=== PATIENT | male | born 1975 | race African-American/Black ===

== ENCOUNTER 2018-08-26 10:48 | Day surgery (SDC) | payer BC, MEDICARE ==
[~2018-08-26] VITALS: Ht 182.9 cm; Wt 141.9 kg
[~2018-08-26 10:48] MED LIST: BUPIVACAINE/PF 0.5% ONE; LIDOCAINE 1%, 20ML ONE
[2018-08-26] MEDS ORDERED: LACTATED RINGERS 1,000 ML IV SCH (11:31)
[2018-08-26] MEDS ORDERED: IBUP-1623 PO (11:32)
[2018-08-26 11:33] VITALS: BP 136/90
[2018-08-26] MEDS ORDERED: MIDAZOLAM 1 MG/ML, 2ML ONE (12:19)
[2018-08-26] MEDS ORDERED: FENTANYL PF 250 MCG/5ML ONE (12:19)
[2018-08-26] MEDS ORDERED: NEOSPORIN OINT, 15GM ONE (12:53)
[2018-08-26] MEDS ORDERED: CEFAZOLIN 1,000 MG ONE (13:45)
[2018-08-26] MEDS ORDERED: ONDANSETRON 2MG/ML, 2ML ONE (13:45)
[2018-08-26] MEDS ORDERED: DEXAMETHASONE 4 MG/ML, 1ML ONE (13:45)
[2018-08-26] MEDS ORDERED: PROPOFOL 10 MG/ML, 50ML ONE (13:45)
[2018-08-26] MEDS ORDERED: LIDOCAINE 1%, 20ML INFIL ONE (14:14)
[2018-08-26] MEDS ORDERED: BUPIVACAINE/PF 0.5% INFIL ONE (14:14)
[2018-08-26] MEDS ORDERED: PROMETHAZINE 25 MG/ML, 1ML IV PRN (14:30)
[2018-08-26] MEDS ORDERED: ACETAMINOPHEN 325 MG TABLET PO PRN (14:30)
[2018-08-26] MEDS ORDERED: LABETALOL 5MG/ML, 20ML IV PRN (14:30)
[2018-08-26] MEDS ORDERED: DIAZEPAM 5 MG/ML, 2ML IVPush PRN (14:30)
[2018-08-26] MEDS ORDERED: KETOROLAC 30 MG/1 ML IV PRN (14:30)
[2018-08-26] MEDS ORDERED: hydrALAzine 20 MG/ML, 1ML IV PRN (14:30)
[2018-08-26] MEDS ORDERED: OXYcodone 5 MG/5 ML ORAL.SOL UDC PO PRN (14:30)
[2018-08-26] MEDS ORDERED: MEPERIDINE/PF 25MG/0.5ML IVPush PRN (14:30)
[2018-08-26] MEDS ORDERED: HYDROmorphone 2 MG/ML, 1ML IVPush PRN (14:30)
[2018-08-26] MEDS ORDERED: ALBUTEROL SULFATE 2.5 MG/3 ML NPPB PRN (14:30)
[2018-08-26] MEDS ORDERED: FENTANYL PF 100 MCG/2ML IV PRN (14:30)
[2018-08-26] MEDS ORDERED: ACETAMINOPHEN 650 MG/20.3 ML UDC ONE (16:12)
[2018-08-26] MEDS ORDERED: OXYcodone 5 MG/5 ML ORAL.SOL UDC ONE (16:13)
== END 2018-08-26 17:50 | disposition home or self-care (01) ==
LOC: OUT 10:48
PROVIDERS: ATTEND Urology
DX: A63.0 Anogenital (venereal) warts (principal); N48.89 Other specified disorders of penis
CPT/HCPCS: 54060; 54161; 88305; J0690; J1100; J2250; J2405; J2704; J3010; J3490; J7120

== ENCOUNTER 2018-08-26 17:47 | Emergency (ER) | payer BC, MEDICARE ==
[~2018-08-26] VITALS: Ht 182.9 cm; Wt 142.8 kg
[~2018-08-26 17:47] MED LIST changes: -BUPIVACAINE/PF 0.5% ONE; +IBUP-1623 PO; -LIDOCAINE 1%, 20ML ONE
--- NOTE | 2018-08-26 17:57 | NUR ---
Pt ambulated to room with technical asst.
--- NOTE | 2018-08-26 18:55 | NUR ---
Lab at bedside.
[2018-08-26] MEDS ORDERED: PROMETHAZINE 25 MG/ML, 1ML IM ONE (19:00)
[2018-08-26] MEDS ORDERED: PROMETHAZINE 25 MG/ML, 1ML ONE (19:00)
--- NOTE | 2018-08-26 19:02 | NUR ---
Pt medicated per SEP. XR at bedside.
[2018-08-26 19:21] LABS: ANION GAP 7 mmol/L (5-15); CALCIUM 8.8 mg/dL (8.5-10.1); CHLORIDE 107 mmol/L (98-107); CREATININE 1.48 mg/dL (0.7-1.3)
[2018-08-26 19:39] LABS: BASOPHILS # (AUTO) 0.01 x10^3/uL (0-0.1); BASOPHILS % (AUTO) 0 % (0-1); EOSINOPHILS # (AUTO) 0.02 x10^3/uL (0-0.4); EOSINOPHILS % (AUTO) 0 % (1-7); LYMPHOCYTES # (AUTO) 0.72 x10^3/uL (1-3.4); LYMPHOCYTES % (AUTO) 13 % (22-44); MD NO; MEAN CORPUSCULAR HEMOGLOBIN 30.7 pg (27.5-34.5); MEAN CORPUSCULAR HGB CONC 33.6 g/dL (33.2-36.2); MEAN CORPUSCULAR VOLUME 91.3 fL (81-97); MEAN PLATELET VOLUME 7.9 fL (7.4-10.4); MONOCYTES # (AUTO) 0.07 x10^3/uL (0.2-0.8); MONOCYTES % (AUTO) 1 % (2-9); NEUTROPHILS # (AUTO) 4.65 x10^3/uL (1.8-6.8); NEUTROPHILS % (AUTO) 85 % (42-75); PLATELET COUNT 276 x10^3/uL (130-400); RED BLOOD COUNT 5.15 x10^6/uL (4.38-5.82)
--- NOTE | 2018-08-26 20:00 | NUR ---
Pt to imaging, with tech, via [facility].
--- NOTE | 2018-08-26 20:16 | NUR ---
dr salgado at bedside updating pt on poc
[2018-08-26 20:35] VITALS: BP 118/82
== END 2018-08-26 20:38 | disposition home or self-care (01) ==
LOC: ED 20:35
DX: G89.29 Other chronic pain (principal); R51 Headache; I10 Essential (primary) hypertension
CPT/HCPCS: 36415; 70450; 71045; 80048; 82040; 85025; 93005; 96372; 99284; J2550